=== PATIENT | male | born 1990 | race Caucasian/White ===

== ENCOUNTER 2021-03-27 17:01 | Emergency (ER) | payer OTHER ==
[~2021-03-27] VITALS: Ht 182.9 cm; Wt 100.0 kg
[~2021-03-27 17:01] MED LIST: CIPRO XR500 MG PO; FLAGYL500 MG PO; FLEXERIL PO; LORTAB 5 PO; OMEPRAZOLE20 M1 PO
[2021-03-27 19:25] VITALS: BP 128/81
== END 2021-03-27 19:25 | disposition home or self-care (01) | DRG 563 ==
LOC: ED 17:01
DX: S93.402A Sprain of unspecified ligament of left ankle, initial encounter (principal); F17.290 Nicotine dependence, other tobacco product, uncomplicated; X50.0XXA Overexertion from strenuous movement or load, initial encounter

== ENCOUNTER 2022-04-20 16:06 | Emergency (ER) | payer OTHER ==
[~2022-04-20] VITALS: Ht 182.9 cm; Wt 110.0 kg
[2022-04-20] MEDS ORDERED: KEFLEX500 MG PO (18:01)
[2022-04-20 18:05] VITALS: BP 127/89
== END 2022-04-20 18:17 | disposition home or self-care (01) | DRG 605 ==
LOC: ED 16:06
PROC: 0HQ1XZZ Repair Face Skin, External Approach (ICD-10-PCS; principal; 2022-04-20)
DX: S01.81XA Laceration without foreign body of other part of head, initial encounter (principal); W22.8XXA Striking against or struck by other objects, initial encounter